=== PATIENT | male | born 1980 | race African-American/Black ===

== ENCOUNTER 2016-07-15 10:39 | Emergency (ER) | payer MEDICAID ==
[~2016-07-15] VITALS: Ht 172.7 cm; Wt 70.3 kg
[2016-07-15 10:49] VITALS: BP 152/92
== END 2016-07-15 12:47 | disposition home or self-care (01) ==
LOC: ER 10:48
DX: S62.300A Unspecified fracture of second metacarpal bone, right hand, initial encounter for closed fracture (principal); Y08.89XA Assault by other specified means, initial encounter; Y93.9 Activity, unspecified; Y99.8 Other external cause status; Y92.89 Other specified places as the place of occurrence of the external cause
CPT/HCPCS: 29125; 73130

== ENCOUNTER → 2016-07-15 | Emergency (ER) | payer OTHER | END | disposition left against medical advice (07) | LOC: ER 00:32 | DX: M79.641 Pain in right hand (principal); Z53.21 Procedure and treatment not carried out due to patient leaving prior to being seen by health care provider ==

== ENCOUNTER 2020-05-16 17:36 | Emergency (ER) | payer MEDICAID ==
[~2020-05-16] VITALS: Ht 172.7 cm; Wt 78.9 kg
[2020-05-16 19:00] VITALS: BP 101/71
[2020-05-16] MEDS ORDERED: TETANUS-DIPTH-ACEL PERTUSSIS 0.5ML SYR Tdap IM ONE (19:00)
[2020-05-16] MEDS ORDERED: LIDOCAINE 1% HCL (LOCAL ANESTH.) INJ 20ML MDV ID ONE (19:00)
[2020-05-16] MEDS ORDERED: NEOMYCIN-BACITRACIN-POLYM UNITDOSE PKG TOP OINT TOP ONE (19:00)
== END 2020-05-16 19:40 | disposition home or self-care (01) ==
LOC: ER 17:38
DX: S91.012A Laceration without foreign body, left ankle, initial encounter (principal); F17.210 Nicotine dependence, cigarettes, uncomplicated; W26.8XXA Contact with other sharp object(s), not elsewhere classified, initial encounter; Y93.55 Activity, bike riding; Y92.488 Other paved roadways as the place of occurrence of the external cause; Y99.8 Other external cause status
CPT/HCPCS: 12002; 90471; 90715; 99283; J2001

== ENCOUNTER 2020-12-29 18:25 | Emergency (ER) | payer MEDICAID ==
[~2020-12-29] VITALS: Ht 172.7 cm; Wt 81.6 kg
[2020-12-29 22:45] VITALS: BP 153/94
== END 2020-12-29 23:33 | disposition home or self-care (01) ==
LOC: ER 18:27
DX: S63.91XA Sprain of unspecified part of right wrist and hand, initial encounter (principal); M65.4 Radial styloid tenosynovitis [de Quervain]; F17.210 Nicotine dependence, cigarettes, uncomplicated; X58.XXXA Exposure to other specified factors, initial encounter; Y93.89 Activity, other specified; Y92.89 Other specified places as the place of occurrence of the external cause; Y99.8 Other external cause status
CPT/HCPCS: 29125; 73130

== ENCOUNTER 2025-02-15 11:14 | Emergency (ER) | payer MEDICAID ==
[~2025-02-15] VITALS: Ht 172.7 cm; Wt 71.4 kg
[2025-02-15 12:11] VITALS: BP 141/101; PULSE 71; RESP 18; TEMP 98.4; O2SAT 97
--- NOTE | 2025-02-15 12:22 | ED.PDOC ---
Musculoskeletal HPI Comments 44 y/o M, presents to the ED for CC of upper extremity pain. Patient states, he has been experiencing right hand and wrist pain with associated swelling s/p hitting a wall x2days ago. Patient has notable swelling to his right hand and wrist. Patient denies numbness, tingling, or weakness. Chief Complaint: Upper Extremity Time Seen by MD: 12:05 Reviewed Notes: Nurses Notes, Medications, Allergies Allergies: Coded Allergies: NO KNOWN ALLERGIES (Unverified , 07/15/16) Home Meds Active Scripts Naproxen (Naproxen) 375 Mg Tab, 375 MG PO TID for 10 Days, #30 TAB Prov:MARCY SIMS MD 02/15/25 Information Source: Patient Mode of Arrival: Ambulatory Location: Right Extremity Location: Hand, Wrist Timing: Days Prehospital treatment: None Severity: Moderate Able to Move Extremity: Yes Pain: Moderate Mechanism: Blunt Trauma Onset of Symptoms: After Trauma Symptoms: Swelling, Pain Associated signs and symptoms: Wrist pain, Swelling, Hand pain Past Medical History PAST MEDICAL HISTORY: Denies Surgical History: Denies all surgeries Family History Family History: Reviewed,noncontributory to illness Social History Smoker: Cigarettes, Less Than 1 Pack/Day Alcohol: Occasionally Drugs: Denies Drug Use Lives In: Home Constitutional: denies: chills, diaphoresis, fatigue, fever, malaise, sweats, weakness, others EENTM: denies: blurred vision, double vision, ear bleeding, ear discharge, ear drainage, ear pain, ear ringing, eye pain, eye redness, hearing loss, mouth pain, mouth swelling, nasal discharge, nose bleeding, nose congestion, nose pain, photophobia, tearing, throat pain, throat swelling, voice changes, others Respiratory: denies: cough, hemoptysis, orthopnea, SOB at rest, shortness of breath, SOB with excertion, stridor, wheezing, others Cardiovascular: denies: chest pain, dizzy spells, diaphoresis, Dyspnea on exertion, edema, irregular heart beat, left arm pain, lightheadedness, palpitations, PND, syncope, others Gastrointestinal: denies: abdomen distended, abdominal pain, blood streaked bowels, constipated, diarrhea, dysphagia, difficulty swallowing, hematemesis, melena, nausea, poor appetite, poor fluid intake, rectal bleeding, rectal pain, vomiting, others Genitourinary: denies: burning, dysuria, flank pain, frequency, hematuria, incontinence, penile discharge, penile sore, pain, testicle pain, testicle swelling, urgency, others Neurological: denies: dizziness, fainting, headache, left sided numbness, left sided weakness, numbness, paresthesia, pre-existing deficit, right sided n umbness, right sided weakness, seizure, speech problems, tingling, tremors, weakness, others Musculoskeletal: reports: others (right hand pain/swelling); denies: back pain, gout, joint pain, joint swelling, muscle pain, muscle stiffness, neck pain Integumetry: denies: bruises, change in color, change in hair/nails, dryness, laceration, lesions, lumps, rash, wounds, others Allergic/Immunocompromised: denies: Difficulty Healing, Frequent Infections, Hives, Itching, others Hematologic/Lymphatic: denies: anemia, blood clots, easy bleeding, easy bruising, swollen glands, others Endocrine: denies: excessive hunger, excessive sweating, excessive thirst, excessive urination, flushing, intolerance to cold, intolerance to heat, unexplained weight gain, unexplained weight loss, others Psychiatric: denies: anxiety, bipolar disorder, depression, hopeless, panic disorder, schizophrenia, sleepless, suicidal, others All Other Systems: Reviewed and Negative Physical Exam General Appearance: Moderate Distress HEENT: Normal ENT Inspection, PERRL/EOMI Neck: Full Range of Motion, Non-Tender, Normal, Normal Inspection Respiratory: Chest Non-Tender, Lungs Clear, No Accessory Muscle Use, No Respiratory Distress, Normal Breath Sounds Cardiovascular: No Edema, No JVD, No Murmur, No Gallop, Normal Peripheral Pulses, Regular Rate/Rhythm Breast Exam: Deferred Gastrointestinal: No Organomegaly, Non Tender, No Pulsatile Mass, Normal Bowel Sounds, Soft Genitalia: Deferred Pelvic: Deferred Rectal: Deferred Extremities: No calf tenderness, Normal capillary refill, Normal inspection, Normal range of motion, Non-tender, No pedal edema Musculoskeletal : Location: Right Extremity Location: Hand, Wrist Apperance: Swelling, Limited ROM, Tenderness: Moderate Neurologic: Alert, forensic medical examiner II-XII nml as Tested, No Motor Deficits, Normal Affect, Normal Mood, No Sensory Deficits Cerebellar Function: Normal Reflexes: Normal Skin: Dry, Normal Color, Warm Peripheral Pulses: 1+ carotid (R), 1+ carotid (L) Lymphatic: No Adenopathy Was a procedure done? Was a procedure done?: No Differential Diagnosis EXT Differential Diagnosis: Fracture, Sprain, Contusion, Strain X-Ray, Labs, Meds, VS Vital Signs Date Time Temp Pulse Resp B/P (MAP) Pulse Ox O2 Delivery O2 Flow Rate FiO2 02/15/25 12:11 98.4 71 18 141/101 (114) 97 98.4 02/15/25 11:17 98.1 78 17 143/92 98 98.1 [place] [address] Ph: [phone] DIAGNOSTIC IMAGING Diagnostic Imaging Report : [id number] Signed PATIENT: BOGDAN BREWER ACCT: [id number] UNIT: [id number] : 1980 LOC: ER ROOM / BED: / AGE / SEX: 44 / M ADM STATUS: REG ER SERVICE 1315 ORDERING PHYSICIAN: MRACY SIMS MD PROCEDURE(s): RHAN - R HAND 3 VIEW XRAY REASON: Hit the wall ORDER NUMBER(s): [id number], ACCESSION NUMBER(s): [id number] CLINICAL INDICATION: Hit the wall, pain in 5th digit. TECHNIQUE: XY R HAND 3 VIEW XRAY, XY R WRIST 3+ VIEW XRAY COMPARISON: R HAND COMPLETE XRAY on DOS: 12/29/20 FINDINGS/IMPRESSION: : There is no evidence of acute fracture or dislocation in the right wrist or right hand. Mild 1st CMC joint osteoarthritis. Mild degenerative change of the radiocarpal joint. Overlying soft tissues are intact. No radiopaque foreign body. ATED BY: MIO CARR MD DICTATED DATE/TIME: 02/15/251405 SIGNED BY: MIO CARR MD SIGNED DATE/TIME: 02/15/251405 CC: [address] [address] Ph: [phone] DIAGNOSTIC IMAGING Diagnostic Imaging Report : [id number] Signed PATIENT: BOGDAN BREWER ACCT: [id number] UNIT: [id number] : 1980 LOC: ER ROOM / BED: / AGE / SEX: 44 / M ADM STATUS: REG ER SERVICE 1315 ORDERING PHYSICIAN: MARCY SIMS MD PROCEDURE(s): RWRI - R WRIST 3+ VIEW XRAY REASON: hit the wall ORDER NUMBER(s): [id number], ACCESSION NUMBER(s): [id number] CLINICAL INDICATION: Hit the wall, pain in 5th digit. TECHNIQUE: XY R HAND 3 VIEW XRAY, XY R WRIST 3+ VIEW XRAY COMPARISON: R HAND COMPLETE XRAY on DOS: 12/29/20 FINDINGS/IMPRESSION: : There is no evidence of acute fracture or dislocation in the right wrist or right hand. Mild 1st CMC joint osteoarthritis. Mild degenerative change of the radiocarpal joint. Overlying soft tissues are intact. No radiopaque foreign body. ATED BY: MIO CARR MD DICTATED DATE/TIME: 02/15/25 140 SIGNED BY: MIO CARR MD SIGNED DATE/TIME: 02/15/25 1406 CC: X-Ray, Labs, Meds, VS Comment Course in the fast track eventfulthe right wrist x-ray negative right hand x-ray negative Patient to be discharged home with a splint Time of 1ST Reevaluation: 12:35 Reevaluation 1ST: Unchanged Time of 2ND Reevaluation: 14:32 Reevaluation 2ND: Unchanged Consultation: PCP Patient Education/Counseling: Diagnosis, Treatment, Prognosis, Need For Follow Up Family Education/Counseling: Diagnosis, Treatment, Prognosis, Need For Follow Up, No Family Present Departure 1 Departure Time of Disposition: 14:32 Impression: Primary Impression: Pain and swelling of right wrist Additional Impression: Sprain of right hand Qualified Codes: S63.91XA - Sprain of unspecified part of right wrist and hand, initial encounter Disposition: 01 HOME / SELF CARE / HOMELESS Condition: Fair Additional Instructions: Local heat and follow up with her PCP e-Prescriptions Naproxen (Naproxen) 375 Mg Tab 375 MG PO TID for 10 Days, #30 TAB Prov: MARCY SIMS MD 02/15/25 Discharged With: Self Critical Care Note Critical Care Time?: No Stability Stability form required: No Heart Score Heart Score: Heart Score Response (Comments) Value History N/A 0 EKG N/A 0 Age <45 0 Risk Factors No known risk factors 0 Troponin N/A 0 Total 0 I personally scribed for MARCY SIMS MD ([email or web address]) on 02/15/25 at 12:22. E lectronically submitted by Alexandra Lira ([email or web address]). I personally scribed for MARCY SIMS MD ([email or web address]) on 02/15/25 at 12:38. El ectronically submitted by Alexandra Lira ([email or web address]). I personally scribed for MARCY SIMS MD ([email or web address]) on 02/15/25 at 14:38. Rosette ctronically submitted by Alexandra Lira ([email or web address]). I personally scribed for MARCY SIMS MD ([email or web address]) on 02/15/25 at 14:38. Elec tronically submitted by Alexandra Lira ([email or web address]). MARCY SIMS MD Feb 15, 2025 12:22
--- NOTE | 2025-02-15 14:09 | DVH ---
CLINICAL INDICATION: Hit the wall, pain in 5th digit. TECHNIQUE: XY R HAND 3 VIEW XRAY, XY R WRIST 3+ VIEW XRAY COMPARISON: R HAND COMPLETE XRAY on DOS: 12/29/20 FINDINGS/IMPRESSION: : There is no evidence of acute fracture or dislocation in the right wrist or right hand. Mild 1st CMC joint osteoarthritis. Mild degenerative change of the radiocarpal joint. Overlying soft tissues are intact. No radiopaque foreign body.
[2025-02-15] MEDS ORDERED: NAPR-957 PO (14:36)
[2025-02-15] MEDS: KETOROLAC TROMETH 60MG/2ML VIAL IM ONE (15:05)
== END 2025-02-15 15:24 | disposition home or self-care (01) ==
LOC: ER 11:14
DX: S63.91XA Sprain of unspecified part of right wrist and hand, initial encounter (principal); F17.210 Nicotine dependence, cigarettes, uncomplicated; W22.01XA Walked into wall, initial encounter; Y93.89 Activity, other specified; Y92.89 Other specified places as the place of occurrence of the external cause; Y99.8 Other external cause status
CPT/HCPCS: 73110; 73130; 96372; 99284; J1885